=== PATIENT | male | born 1995 | race African-American/Black ===

== ENCOUNTER 2016-12-08 20:17 | Emergency (ER) | payer SELFPAY ==
[~2016-12-08] VITALS: Ht 180.3 cm; Wt 76.7 kg
[2016-12-08 20:36] VITALS: BP 114/63
--- NOTE | 2016-12-08 20:40 | PHYS DOC ---
Past Medical History Past Medical History: No Pertinent History Past Surgical History: No Surgical History Alcohol Use: None Drug Use: Marijuana Adult General Chief Complaint Chief Complaint: LACERATION/AVULSION HPI HPI Patient is a 21 year old male presents emergency department stating that he cut his left hand on a basketball goal. He states there was some sharp areas on the cold when he went up and around it. He has 2 lacerations noted on his left hand. One is on the fifth metacarpal area that is proximally 2 cm in length the other is on the fourth finger that is 2 cm in length both areas are not bleeding at the current time. Patient is unsure when his last tetanus immunization occurred. Patient denies any further injuries. Review of Systems Review of Systems Constitutional: Denies fever or chills [] Eyes: Denies change in visual acuity, redness, or eye pain [] HENT: Denies nasal congestion or sore throat [] Respiratory: Denies cough or shortness of breath [] Cardiovascular: No additional information not addressed in HPI [] GI: Denies abdominal pain, nausea, vomiting, bloody stools or diarrhea [] : Denies dysuria or hematuria [] Musculoskeletal: Denies back pain or joint pain [] Integument: Denies rash or skin lesions [] Neurologic: Denies headache, focal weakness or sensory changes [] Endocrine: Denies polyuria or polydipsia [] Current Medications Current Medications Current Medications Medications (Trade) Dose Ordered Sig/[facility] Start Time Stop Time Status Last Admin Dose Admin Lidocaine/Sodium Bicarbonate (Buffered Lidocaine 1%) 20 ml 1X ONCE 12/08/16 21:00 12/08/16 21:01 DC 12/08/16 21:00 20 ML Allergies Allergies Allergies Coded Allergies Type Severity Reaction Last Updated Verified No Known Drug Allergies 02/25/14 No Physical Exam Physical Exam Constitutional: Well developed, well nourished, no acute distress, non-toxic appearance. [] HENT: Normocephalic, atraumatic, bilateral external ears normal, oropharynx moist, no oral exudates, nose normal. [] Eyes: PERRLA, EOMI, conjunctiva normal, no discharge. [] Neck: Normal range of motion, no tenderness, supple, no stridor. [] Cardiovascular:Heart rate regular rhythm Lungs & Thorax: no respiratory distress noted Skin: Warm, dry, no erythema, no rash. 2 cm laceration noted along the left fifth metatarsal area on the palmar side. Patient was also noted to have a 2 cm laceration along the fourth finger on the palmar side as well. Bleeding is currently controlled. Patient has full range of motion of the hands. Back: No tenderness Extremities: No tenderness, no cyanosis, no clubbing, ROM intact, no edema. [] Neurologic: Alert and oriented X 3, normal motor function, normal sensory function, no focal deficits noted. [] Psychologic: Affect normal, judgement normal, mood normal. [] Current Patient Data Vital Signs Vital Signs Date Time Temp Pulse Resp B/P (MAP) Pulse Ox O2 Delivery O2 Flow Rate FiO2 12/08/16 20:36 98.3 84 18 95 Room Air 98.3 EKG EKG [] Radiology/Procedures Radiology/Procedures [] Course & Med Decision Making Course & Med Decision Making Pertinent Labs and Imaging studies reviewed. (See chart for details) Patient was provided with discharge instructions to keep the area clean and dry. Clean the site with soap and water and apply antibiotic ointment to the area twice a day. Signs and symptoms of infection was also provided: Redness, warmth, tenderness or any yellow/greenish drainage. If this should occur he is to follow-up the primary care physician immediately. Patient was encouraged to have the sutures removed in 7-10 days. Patient was encouraged to use ice packs elevation as much as possible Tylenol or ibuprofen for pain and discomfort. Patient be discharged home in stable condition. She was provided with signs and symptoms to return back to the emergency department. [] Dragon Disclaimer Dragon Disclaimer This electronic medical record was generated, in whole or in part, using a voice recognition dictation system. Departure Departure Impression: Primary Impression: Laceration Disposition: 01 HOME, SELF-CARE Condition: STABLE Referrals: BRITTANY RODRIGUEZ MD (PCP) Patient Instructions: Laceration Care, Adult, [id number], Sutured Wound Care , [id number] Additional Instructions: Activity as tolerated. Keep the area clean and dry. Clean the site with soap and water twice a day and apply antibiotic ointment to the site. Watch for signs and symptoms of infection: Redness, warmth, tenderness or any yellow/greenish drainage of a come from the site if this should occur follow-up to primary care physician immediately. Tylenol or ibuprofen for pain and discomfort. Ice packs and elevation as much as possible. Follow-up with primary care physician in 7-10 days to have the sutures removed. Return back to emergency department as needed for signs and symptoms of become worse. Laceration/Wound Repair Laceration/Wound Repair : Wound Location: upper extremity Wound's Depth, Shape: superficial Wound Length (cm): 2 Wound Explored: clean Betadine Prep?: Yes Anesthesia: 1% Lidocaine Volume Anesthetic (ccs): 4 Wound Debrided: minimal Wound Repaired With: sutures Suture Size/Type: 4:0 Number of Sutures: 7 Progress Site was injected with approximately 4-5 mL of 1% lidocaine. The site was on the palmar side of the hand. Site was then cleaned with Betadine. 7 interrupted sutures of 4-0 nylon was placed. Patient tolerated the procedure well. Laceration/Wound Repair Laceration/Wound Repair : Wound Location: upper extremity Wound's Depth, Shape: superficial Wound Length (cm): 2 Wound Explored: clean Betadine Prep?: Yes Anesthesia: 1% Lidocaine Volume Anesthetic (ccs): 5 Wound Debrided: minimal Wound Repaired With: sutures Suture Size/Type: 4:0 Number of Sutures: 5 Progress Site was cleaned with Betadine. A digital block was performed with approximately 4 mL of 1% lidocaine was injected into the left fourth finger. Site was sutured with 4-0 nylon with approximately 5 which was placed. Patient tolerated the procedure well. Dressing for both were applied by nursing staff. BOOGIE ANDERS APRN December 08, 2016 20:40
[2016-12-08] MEDS ORDERED: LIDOCAINE 1% / SOD BICARB 8.4% 20 ML VIAL. IJ ONE (21:00)
[2016-12-08] MEDS ORDERED: DIPHTH,PERTUSS(ACELL),TET TOX 0.5 ML DISP.SYRIN. VAX IM ONE (22:00)
== END 2016-12-08 22:10 | disposition home or self-care (01) ==
LOC: ER 21:10
DX: S61.412A Laceration without foreign body of left hand, initial encounter (principal); F12.10 Cannabis abuse, uncomplicated; Y28.8XXA Contact with other sharp object, undetermined intent, initial encounter; Y93.67 Activity, basketball; Y99.8 Other external cause status; Y92.89 Other specified places as the place of occurrence of the external cause
CPT/HCPCS: 12002; 90471; 90715; 99283-25